=== PATIENT | female | born 1985 | race Caucasian/White ===

== ENCOUNTER 2017-12-08 11:58 | Emergency (ER) | payer BC ==
[2017-12-08 12:16] VITALS: BP 126/84
--- NOTE | 2017-12-08 12:44 | EDM.PDOC ---
ED HPI GENERAL MEDICAL PROBLEM - General Chief Complaint: Chest Pain Stated Complaint: CHEST PAIN Time Seen by Provider: 12/08/17 12:08 Source of Information: Reports: Patient, RN Notes Reviewed - History of Present Illness INITIAL COMMENTS - FREE TEXT/NARRATIVE: 32 year old female with onset of anterior chest discomfort about 4 hrs ago at work this past morning. Piru a heart burn type sensation upper mid chest radiating to base of neck. However since than has continued shooting pains across lower chest, has felt fatigued, mildly dizzy. She has not felt short of breath. Not coughing. No fever or chills. 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: - Past Surgical History Other HEENT Surgeries/Procedures: [place] teeth removed Musculoskeletal Surgical History: Reports: Ganglion Cyst Social & Family History - Family History Family Medical History: Noncontributory - Tobacco Use Smoking Status *Q: Never Smoker - Caffeine Use Caffeine Use: Reports: Soda - Recreational Drug Use Recreational Drug Use: No ED ROS GENERAL - Review of Systems Review Of Systems: See Below Constitutional: Denies: Fever, Chills, Diaphoresis HEENT: Denies: Sinus Problem, Throat Pain Respiratory: Denies: Shortness of Breath, Wheezing, Pleuritic Chest Pain, Cough , Hemoptysis Cardiovascular: Reports: Chest Pain, Lightheadedness (gone). Denies: Dyspnea on Exertion, Palpitations GI/Abdominal: Denies: Abdominal Pain, Nausea, Vomiting Musculoskeletal: Denies: Neck Pain, Shoulder Pain, Arm Pain Skin: Reports: No Symptoms Neurological: Reports: Dizziness (gone). Denies: Numbness, Tingling, Trouble Speaking ED EXAM, GENERAL - Physical Exam Exam: See Below General Appearance: Alert, No Apparent Distress Eye Exam: Bilateral Eye: PERRL Throat/Mouth: Normal Inspection Head: Atraumatic Neck: Supple, Full Range of Motion Respiratory/Chest: No Respiratory Distress, Lungs Clear, Normal Breath Sounds, Other (mild tenderness R sternal border). No: Rhonchi, Wheezing Cardiovascular: Regular Rate, Rhythm GI/Abdominal: Soft, Non-Tender Neurological: Alert, No Motor/Sensory Deficits Skin Exam: Warm, Dry, Normal Color, No Rash EKG INTERPRETATION EKG Date: 12/08/17 Rhythm: NSR Miracle: Normal P-Wave: Present QRS: Normal ST-T: Normal Course - Vital Signs Last Recorded V/S: Last Vital Signs Temp 97.5 F 12/08/17 12:11 Pulse 60 12/08/17 12:11 Resp 18 12/08/17 12:11 BP 126/84 12/08/17 12:11 Pulse Ox 97 12/08/17 12:11 - Orders/Labs/Meds Orders: Active Orders 24 hr Category Date Time Status EKG 12 Lead [EKG Documentation Completion] [RC] STAT Care 12/08/17 12:43 Active Labs: Laboratory Tests 12/08/17 12/08/17 12/08/17 Range/Units 12:57 12:57 12:57 WBC 6.47 (3.98-10.04) K/mm3 RBC 3.83 L (3.98-5.22) M/mm3 Hgb 11.9 (11.2-15.7) gm/L Hct 35.1 (34.1-44.9) % MCV 91.6 (79.4-94.8) fl MCH 31.1 (25.6-32.2) pg MCHC 33.9 (32.2-35.5) g/dl RDW Std Deviation 40.8 (36.4-46.3) fL Plt Count 193 (182-369) K/mm3 MPV 10.8 (9.4-12.3) fl Neut % (Auto) 64.1 (34.0-71.1) % Lymph % (Auto) 24.7 (19.3-51.7) % [place] % (Auto) 9.9 (4.7-12.5) % Eos % (Auto) 0.9 (0.7-5.8) Baso % (Auto) 0.2 (0.1-1.2) % Neut # (Auto) 4.15 (1.56-6.13) K/mm3 Lymph # (Auto) 1.60 (1.18-3.74) K/mm3 [place] # (Auto) 0.64 H (0.24-0.36) K/mm3 Eos # (Auto) 0.06 (0.04-0.36) K/mm3 Baso # (Auto) 0.01 (0.01-0.08) K/mm3 D-Dimer, Quantitative 0.55 H (0.19-0.50) mg/L Sodium 141 (136-145) mEq/L Potassium 4.0 (3.5-5.1) mEq/L Chloride 107 (98-107) mEq/L Carbon Dioxide 29 (21-32) mEq/L Anion Gap 9.0 (5-15) BUN 12 (7-18) mg/dL Creatinine 0.8 (0.55-1.02) mg/dL Est Cr Clr Drug Dosing 110.18 mL/min Estimated GFR (MDRD) > 60 (>60) mL/min BUN/Creatinine Ratio 15.0 (14-18) Glucose 90 (74-106) mg/dL Calcium 8.3 L (8.5-10.1) mg/dL Total Bilirubin 1.6 H (0.2-1.0) mg/dL AST 15 (15-37) U/L ALT 18 (14-59) U/L Alkaline Phosphatase 42 L (46-116) U/L Total Protein 6.2 L (6.4-8.2) g/dl Albumin 3.4 (3.4-5.0) g/dl Globulin 2.8 gm/dL Albumin/Globulin Ratio 1.2 (1-2) - Re-Assessments/Exams Free Text/Narrative Re-Assessment/Exam: 12/08/17 15:30 D Dimer came back at 0.55, slightly above the 0.50 recomended upper limit for nl. Symptomatically she feels better, discomfort and dizziness are both gone. Sats are 98 to 100%. She is not tachycardic or tachypnic. She is not short of breath and does not have pain with deep breathing. With none of those sx and no recent surgery, not on BCP I do not feel a CT pul angio is justified. Patient is in agreement with that. Will return to ED if symptoms worsening in any way. Departure - Departure Time of Disposition: 14:30 Disposition: Home, Self-Care 01 Condition: Fair Clinical Impression: Atypical chest pain GERD (gastroesophageal reflux disease) Qualifiers: Esophagitis presence: without esophagitis Qualified Code(s): K21.9 - Gastro- esophageal reflux disease without esophagitis Instructions: Nonspecific Chest Pain, [id number], Gastroesophageal Reflux Disease, Adult, [id number] Referrals: Miller Mitchell MD [Primary Care Provider] - Forms: ED Department Discharge Additional Instructions: consider pepcid or prilosec if having any further reflux type symptoms. Follow up clinic in 1 to 2 days, call [phone] for appt. Return to ED if symptoms worsening in any way as discussed. - My Orders Last 24 Hours: My Active Orders 12/08/17 12:43 EKG 12 Lead [EKG Documentation Completion] [RC] STAT - Assessment/Plan Last 24 Hours: My Active Orders 12/08/17 12:43 EKG 12 Lead [EKG Documentation Completion] [RC] STAT
== END 2017-12-08 14:47 | disposition home or self-care (01) ==
LOC: JD.ED 11:58
DX: R07.89 Other chest pain (principal); K21.9 Gastro-esophageal reflux disease without esophagitis
CPT/HCPCS: 36415; 80053; 85025; 85379; 93005; 93010; 99284-25; 99285-25

== ENCOUNTER 2019-02-03 22:50 | Inpatient (IN) | payer BC ==
[2019-02-03] MEDS ORDERED: Nalbuphine 10 MG/1 ML Vial IVPUSH PRN (23:19)
[2019-02-03] MEDS ORDERED: Sodium Chloride 0.9% 10 ML Syringe FLUSH PRN (23:19)
[2019-02-03] MEDS ORDERED: Ondansetron 4 MG/2 ML SDV IVPUSH PRN (23:19)
[2019-02-03] MEDS ORDERED: Lactated Ringers 1,000 ML IV SCH (23:30)
[2019-02-03] MEDS ORDERED: Oxytocin/Lactated Ringers 10 UNIT/1,000 ML BAG IV SCH (23:30)
[2019-02-04] MEDS ORDERED: diphenhydrAMINE 50 MG/ML SDV IVPUSH PRN (00:53)
[2019-02-04] MEDS ORDERED: fentaNYL/Bupivacaine/NS 2 MCG-0.125% 250 ML EPIDUR PRN (00:53)
[2019-02-04] MEDS ORDERED: fentaNYL 100 MCG/2 ML SDV EPIDUR PRN (00:53)
[2019-02-04] MEDS ORDERED: ePHEDrine 50 MG/ML SDV IVPUSH PRN (00:53)
--- NOTE | 2019-02-04 01:45 | PCM.LDHP ---
L&D History of Present Illness - General Date of Service: 02/04/19 Admit Problem/Dx: Patient Status Order with Admit Dx/Problem 02/03/19 23:19 Patient Status [ADT] Routine Admission Diagnosis/Problem Admission Diagnosis/Problem 02/04/19 01:32 Idalia is a 33 y/o G 3 P 2000 white female admitted at 38 2/7 weeks GA with an MAGUI of 02/16/19 in active labor with SROM and advanced cervical dilation of 4 cm. She has a h/o CS with first baby and with second and desires TOLAC with attempt at with this labor. Source of Information: Patient History Limitations: Reports: No Limitations - History of Present Illness Introduction:: Idalia is a 33 y/o G 3 P 2000 white female admitted at 38 2/7 weeks GA with an MAGUI of 02/16/19 in active labor with SROM and advanced cervical dilation of 4 cm. She has a h/o CS with first baby and with second and desires TOLAC with attempt at with this labor. She had a taste rupture membranes at approximately 20-30 hours on 02/03/2019. She was flower mildly before this but contractions intensified significantly after the SROM. 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 MAGUI 02/16/2019 is based upon a certain last menstrual starting 05/12/2018 is supported by 2 ultrasounds done on 07/20/2018 and 10/13/2018. Patient had menarche at age 12. Cycles every 28 days. Cycles are regular and last menstrual period was definite. Her past obstetric history includes the followin. Male born 06/30/2012 at 39 weeks gestational age7 lbs. 9 oz. section done to breech presentation. This child's name is Breana Bhatt 2. Female born 03/14/2015 at 38-3/7 weeks gestational age after 13 hours of laborVBACepidural use. Child's name is Kenzie Santana course: Patient was seen first for this on 07/20/2018 and 967 weeks gestational age. She had regular visits throughout the . Her weight gain was from 190-207 pounds. Fundal height growth was appropriate. Patient plans to attempt a . She had an abnormal three-hour glucose tolerance test. She control this well with diet alone. Plans to breast-feed. She declined genetic testing. [place] depression screening score on 10/08/2018 was 2/30. She had her flu shot on 01/14/2019. Her T dap was given on 12/17/2018 and patient is rubella immune. Laboratory testing and shows blood to be a positive with a negative and by screen. First hemoglobin is 13.3 g/dL and platelets are 229, 000. Her rubella titer shows immunity. RPR is nonreactive. Hepatitis B surface antigen was negative as was HIV assay. 10 Chlamydia tests were both negative. Second trimester labs showed a hemoglobin of 11.7 g/dL. Her platelets are 179,000. Her 1 hour screen was 137. History of glucose was as follows: Fasting blood sugar 87. One-hour blood sugar is 197. 2 hour blood sugar was 172. And 3 hour blood sugar was 124 giving her the diagnosis of gestational diabetes. Group B strep screen on 01/21/2019 was negative. RPR repeated on 11/10/2018 was nonreactive. Allergies: None Medications: 1. Ferrous sulfate 325 mg by mouth daily 2. tablets one by mouth daily 3. Claritin tablets when necessary for allergies. Past medical history: 1. Vaginal delivery 1VBAC Past surgical history: 1. 2013 secondary to breech presentation. 2. Ankle surgery 2. 3. Foot surgery 1. Family history: Noncontributory Social history: Patient is . is Peder. 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 She is a college graduate. She does not use any significant loss of alcohol, drugs or tobacco. Review of systems: Patient is in active labor having discomfort secondary to that. Skin: Negative Lungs: No infectious symptoms or shortness of breath Cardiovascular: No chest pain or exercise intolerance Breasts: Changes associated with . GI: Negative : Changes associated with . Musculoskeletal: Negative Neurological: Negative In general the patient is well-developed, well-nourished, pleasant female of stated age in no acute distress. Skin is warm dry without lesions. HEENT, neck and back within normal limits. Lungs are clear with good breath sounds in all lung parr. Rest of first visit were without abnormality. They're not reexamined this time. Patient plans to breast-feed. Cardiovascular exam shows regular and rhythm without murmurs. Abdomen is gravid. Last fundal height in clinic was 37 cm. It is in vertex presentation. Gentle exam per nursing evaluation at the time of admission shows cervix to be 4 cm , 90% effaced, gross spontaneous rupture membranes noted. Extremities and neurological exam are grossly within normal limits. 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: Other OB/BYN History: Endocrine/Metabolic History: Reports: Diabetes, Gestational - Past Surgical History HEENT Surgical History: Reports: Oral Surgery Other HEENT Surgeries/Procedures: [place] teeth removed Female Surgical History: Reports: Section Musculoskeletal Surgical History: Reports: Other (See Below) Other Musculoskeletal Surgeries/Procedures:: ankle surgery Social & Family History - Family History Family Medical History: Noncontributory - Tobacco Use Smoking Status *Q: Never Smoker - Caffeine Use Caffeine Use: Reports: Soda - Recreational Drug Use Recreational Drug Use: No H&P Review of Systems - Review of Systems: Review Of Systems: See Below L&D Exam - Exam Exam: See Below - Vital Signs Vital Signs: Last Vital Signs Temp 36.7 C 02/03/19 23:06 Pulse 62 02/03/19 23:06 Resp 16 02/03/19 23:06 BP 126/75 02/03/19 23:06 Pulse Ox 98 02/03/19 23:06 Weight: 94.347 kg - Patient Data Lab Results Last 24 hrs: Laboratory Results - last 24 hr 02/03/19 02/03/19 Range/Units 23:35 23:35 WBC 12.86 H (3.98-10.04) K/mm3 RBC 3.93 L (3.98-5.22) M/mm3 Hgb 12.9 (11.2-15.7) gm/dl Hct 36.8 (34.1-44.9) % MCV 93.6 (79.4-94.8) fl MCH 32.8 H (25.6-32.2) pg MCHC 35.1 (32.2-35.5) g/dl RDW Std Deviation 41.9 (36.4-46.3) fL Plt Count 181 L (182-369) K/mm3 MPV 11.4 (9.4-12.3) fl Neut % (Auto) 75.2 H (34.0-71.1) % Lymph % (Auto) 15.9 L (19.3-51.7) % [place] % (Auto) 7.8 (4.7-12.5) % Eos % (Auto) 0.5 L (0.7-5.8) Baso % (Auto) 0.2 (0.1-1.2) % Neut # (Auto) 9.69 H (1.56-6.13) K/mm3 Lymph # (Auto) 2.04 (1.18-3.74) K/mm3 [place] # (Auto) 1.00 H (0.24-0.36) K/mm3 Eos # (Auto) 0.06 (0.04-0.36) K/mm3 Baso # (Auto) 0.02 (0.01-0.08) K/mm3 Blood Type A POSITIVE Gel Antibody Screen Negative Result Diagrams: 02/03/19 23:35 Problem List Initiated/Reviewed/Updated: Yes Orders Last 24hrs: Active Orders 24 hr Category Date Time Status Patient Status [ADT] Routine ADT 02/03/19 23:19 Active Activity as Tolerated [RC] PFP Care 02/03/19 23:19 Active Communication Order [RC] ASDIRECTED Care 02/03/19 23:19 Active Heart Tones [RC] ASDIRECTED Care 02/03/19 23:19 Active Heart Tones [RC] ASDIRECTED Care 02/03/19 23:19 Active Non Stress Test [RC] PER UNIT ROUTINE Care 02/03/19 23:19 Active Notify Provider [RC] ASDIRECTED Care 02/04/19 00:53 Active Notify Provider [RC] PFP Care 02/03/19 23:19 Active Notify Provider [RC] PRN Care 02/03/19 23:19 Active Peripheral IV Care [RC] . DIRECTED Care 02/03/19 23:19 Active Urinary Catheter Assessment [RC] ASDIRECTED Care 02/03/19 23:19 Active Verify Patient Consent Obtain [RC] ASDIRECTED Care 02/03/19 23:23 Active Vital Signs [RC] PER UNIT ROUTINE Care 02/03/19 23:19 Active RAPID PLASMA REAGIN,RPR [CHEM] Routine Lab 02/03/19 23:35 Received Bupivicaine/fentaNYL/NS [fentaNYL/Bupivacaine/NS 2 MCG- Med 02/04/19 00:53 Active 0.125% 250 ML] 2 mcg EPIDUR CONTINUOUS PRN Lactated Ringers [Ringers, Lactated] 1,000 ml Med 02/03/19 23:30 Active IV ASDIRECTED Nalbuphine [Nubain] Med 02/03/19 23:19 Active 10 mg IVPUSH Q2H PRN Ondansetron [Zofran] Med 02/03/19 23:19 Active 4 mg IVPUSH Q4H PRN Oxytocin/Lactated Ringers [Pitocin in LR 10 Units/1,000 Med 02/03/19 23:30 Active ML] 10 unit in 1,000 ml IV .CONTINUOUS Sodium Chloride 0.9% [Saline Flush] Med 02/03/19 23:19 Active 10 ml FLUSH ASDIRECTED PRN diphenhydrAMINE [Benadryl] Med 02/04/19 00:53 Active 25 mg IVPUSH Q6H PRN ePHEDrine [ePHEDrine sulfate] Med 02/04/19 00:53 Active 5 mg IVPUSH ASDIRECTED PRN fentaNYL [Sublimaze] Med 02/04/19 00:53 Active 100 mcg EPIDUR Q3H PRN Electronic Heart Tones Ext w TOCO [WOMSER] Oth 02/03/19 23:19 Ordered Routine Electronic Heart Tones Internal [WOMSER] Per Unit Oth 02/03/19 23:19 Ordered Routine Peripheral IV Insertion Adult [OM.PC] Routine Oth 02/03/19 23:19 Ordered Saline Lock Insert [OM.PC] Routine Oth 02/03/19 23:20 Ordered Resuscitation Status Routine Resus Stat 02/03/19 23:19 Ordered Medication Orders Diphenhydramine HCl (Benadryl) 25 mg IVPUSH Q6H PRN PRN Reason: pruritis Ephedrine Sulfate (Ephedrine Sulfate) 5 mg IVPUSH ASDIRECTED PRN PRN Reason: Hypotension Fentanyl (Sublimaze) 100 mcg EPIDUR Q3H PRN PRN Reason: Pain Fentanyl/Bupivacaine HCl (Fentanyl/Bupivacaine/Ns 2 Mcg-0.125% 250 Ml) 2 mcg EPIDUR CONTINUOUS PRN PRN Reason: Pain Lactated Ringer's (Ringers, Lactated) 1,000 mls @ 100 mls/hr IV ASDIRECTED [facility] Last Admin: 02/04/19 00:21 Dose: 100 mls/hr Oxytocin/Lactated Ringer's (Pitocin In Lr 10 Units/1,000 Ml) 10 unit in 1,000 mls @ 500 mls/hr IV .CONTINUOUS KOLBY Last Admin: 02/04/19 01:18 Dose: 500 mls/hr Nalbuphine HCl (Nubain) 10 mg IVPUSH Q2H PRN PRN Reason: Pain Ondansetron HCl (Zofran) 4 mg IVPUSH Q4H PRN PRN Reason: Nausea/Vomiting Sodium Chloride (Saline Flush) 10 ml FLUSH ASDIRECTED PRN PRN Reason: Keep Vein Open Assessment/Plan Comment:: 1. 38-2/7 week intrauterine , spontaneous rupture membranes with active labor and advanced cervical dilation upon admission. 2. Group B strep screen negative 3. History of previous section with first pregnancydone for breech presentationhas successfully and wishes to be back this time. 4. T dap, flu vaccination given in . 5. Patient plans to breast-feed. 6. Patient plan for epidural. Plan: 1. Precautions taken regarding trial of labor after section for attempt at vaginal after section including section labs secured. Continuous heart rate monitoring recommended. IV access obtained. Consents obtained for trial labor after section for attempt at vaginal after section, possible repeat section. Anesthesia and surgery departments are made aware of patient's presence in L&D. 2. Anticipate . 3. Support breast-feeding decision
--- NOTE | 2019-02-04 01:55 | PCM.SN ---
- Free Text/Narrative Note: Idalia is a 33-year-old 3 now para 3003 white female admitted on and 38-2/7 weeks gestational age with spontaneous rupture membranes, in active labor with history of section with her first delivery, a baby with her second delivery desiring with this . MAGUI was 2018. She progressed rapidly to complete cervical dilation. She desired but did not receive epidural analgesia because of the sphenoid with which she dilated. She delivered a viable, farah, male infant with Apgars of 7 and 9, weight of 3640 g (8 pounds 0.4 ounces), in a direct occiput anterior position at 0115 hrs. on 02/04/2019. It was nuchal cord 2 which was loose and reduced over the baby's head. She had a true knot in the cord. The umbilical cord had 3 vessels. Upon delivery the Pitocin was started and run at 500 mL an hour facilitate increase uterine tone and decreased likelihood of bleeding. Patient had a first-degree laceration which was repaired with a single figure-of -eight suture of 3-0 Monocryl. The placenta delivered in a Casarez presentation , appeared intact and complete and was discarded per patient desire. Estimated blood loss 100 mL. She plans to breast-feed. Condition: Good
[2019-02-04] MEDS ORDERED: Docusate Sodium 100 MG Cap PO PRN (01:56)
[2019-02-04] MEDS ORDERED: Acetaminophen 325 MG Tab PO PRN (01:56)
[2019-02-04] MEDS ORDERED: Benzocaine/Menthol 20%-0.5% Spray 56 GM Canister TOP PRN (01:56)
[2019-02-04] MEDS: Witch Hazel Medicated Pads 40/Jar TOP PRN ×2 (02:11→15:30)
[2019-02-04] MEDS: Ibuprofen 600 MG Tab PO PRN ×4 (02:12→20:38)
[2019-02-04] MEDS: Prenatal Multivitamin with Calcium/Folic Acid/Iron Tab PO SCH (08:00)
[2019-02-05] MEDS: Ibuprofen 600 MG Tab PO PRN ×2 (01:21→06:10)
--- NOTE | 2019-02-05 06:00 | PCM.DCSUM1 ---
Discharge Summary - Hospital Course Free Text/Narrative:: Idalia is a 33-year-old 3 now para 3003 white female admitted on 2018 and 38-2/7 weeks gestational age with spontaneous rupture membranes, in active labor with history of section with her first delivery, a baby with her second delivery desiring with this . MAGUI was 2018. She progressed rapidly to complete cervical dilation. She desired but did not receive epidural analgesia because of the sphenoid with which she dilated. She delivered a viable, farah, male with Apgars of 7 and 9, weight of 3640 g (8 pounds 0.4 ounces), in a direct occiput anterior position at 0115 hrs. on 02/04/2019. It was nuchal cord 2 which was loose and reduced over the baby's head. She had a true knot in the cord. The umbilical cord had 3 vessels. Upon delivery the Pitocin was started and run at 500 mL an hour facilitate increase uterine tone and decreased likelihood of bleeding. Patient had a first-degree laceration which was repaired with a single figure-of -eight suture of 3-0 Monocryl. The placenta delivered in a Casarez presentation , appeared intact and complete and was discarded per patient desire. Estimated blood loss 100 mL. patient is done very well. She is ambulating well, has minimal lochia , was voiding without concerns. Breast-feeding is going well. She desires to be discharged home today. Condition: Good Diagnosis: Stroke: No - Discharge Data Discharge Date: 02/05/19 Discharge Disposition: Home, Self-Care 01 Condition: Good - Referral to Home Health Primary Care Physician: Miller Mitchell MD - Patient Instructions Diet: Regular Diet as Tolerated (Nursing diet with increase calories and calcium as recommended) Activity: As Tolerated (No intercourse or tampons until bleeding resolves) Driving: May Drive Today Showering/Bathing: May Shower (May take a bath) Notify Provider of: Fever, Increased Pain, Swelling and Redness, Nausea and/or Vomiting - Discharge Plan Home Medications: Home Meds PNV95/Ferrous Fumarate/FA [ Tablet] 1 each PO DAILY 03/13/16 [History] Ferrous Gluconate [Iron] 75 mg PO 02/03/19 [History] Acetaminophen [Tylenol] 650 mg PO Q4H PRN tablet 02/05/19 [Rx] Ibuprofen [Motrin] 600 mg PO Q4H PRN tablet 02/05/19 [Rx] Referrals: Miller Mitchell MD [Primary Care Provider] - (Return to clinicDr. Mitchell2 weeks.) - Discharge Summary/Plan Comment DC Time >30 min.: No Discharge Summary/Plan Comment: Discharge instructions: 1. Discharge home 2. Diet, activity and follow-up discussed with patient. Recommend nursing diet with increased calories and calcium. 3. Precautions given concern increased pain, bleeding, temperature, signs/ symptoms of DVT/PE. 4. Medications per home medication was printed, discussed with and given to the patient. 5. Return to clinic-Dr. Mitchell-[facility] in 2 weeks. Diagnosis: Term -delivered Condition: Good - Patient Data Vitals - Most Recent: Last Vital Signs Temp 37.2 C 02/05/19 04:30 Pulse 62 02/05/19 04:30 Resp 16 02/05/19 04:30 BP 124/61 02/05/19 04:30 Pulse Ox 99 02/05/19 04:30 Weight - Most Recent: 94.347 kg I&O - Last 24 hours: Intake & Output 02/04/19 02/04/19 02/05/19 14:59 22:59 06:59 Intake Total 180 360 Balance 180 360 Lab Results - Last 24 hrs: Laboratory Results - last 24 hr 02/03/19 Range/Units 23:35 RPR Non-reactive (NONREACTIVE) Med Orders - Current: Current Medications Acetaminophen (Tylenol) 650 mg PO Q4H PRN PRN Reason: mild pain or fever Benzocaine/Menthol (Dermoplast Pain Relief [place]) 0 gm TOP ASDIRECTED PRN PRN Reason: Perineal Comfort Measure Last Admin: 02/04/19 02:12 Dose: 1 applic Docusate Sodium (Colace) 100 mg PO BID PRN PRN Reason: Constipation Last Admin: 02/04/19 14:52 Dose: 100 mg Ibuprofen (Motrin) 600 mg PO Q4H PRN PRN Reason: Mild pain or fever Last Admin: 02/05/19 01:21 Dose: 600 mg Prenat Multivit/Labette/Iron/Folic Ac ( Plus Iron) 1 each PO DAILY [facility] Last Admin: 02/04/19 08:00 Dose: 1 each Twila Hong (Tucks) 1 pad TOP ASDIRECTED PRN PRN Reason: Pain Last Admin: 02/04/19 15:30 Dose: 1 applic Discontinued Medications Diphenhydramine HCl (Benadryl) 25 mg IVPUSH Q6H PRN PRN Reason: pruritis Ephedrine Sulfate (Ephedrine Sulfate) 5 mg IVPUSH ASDIRECTED PRN PRN Reason: Hypotension Fentanyl (Sublimaze) 100 mcg EPIDUR Q3H PRN PRN Reason: Pain Fentanyl/Bupivacaine HCl (Fentanyl/Bupivacaine/Ns 2 Mcg-0.125% 250 Ml) 2 mcg EPIDUR CONTINUOUS PRN PRN Reason: Pain Lactated Ringer's (Ringers, Lactated) 1,000 mls @ 100 mls/hr IV ASDIRECTED KOLBY Last Admin: 02/04/19 00:21 Dose: 100 mls/hr Oxytocin/Lactated Ringer's (Pitocin In Lr 10 Units/1,000 Ml) 10 unit in 1,000 mls @ 500 mls/hr IV .CONTINUOUS KOLBY Last Admin: 02/04/19 01:18 Dose: 500 mls/hr Nalbuphine HCl (Nubain) 10 mg IVPUSH Q2H PRN PRN Reason: Pain Ondansetron HCl (Zofran) 4 mg IVPUSH Q4H PRN PRN Reason: Nausea/Vomiting Sodium Chloride (Saline Flush) 10 ml FLUSH ASDIRECTED PRN PRN Reason: Keep Vein Open
[2019-02-05 11:42] VITALS: BP 99/65; PULSE 66
[2019-02-05] MEDS: Prenatal Multivitamin with Calcium/Folic Acid/Iron Tab PO SCH (11:51)
== END 2019-02-05 11:16 | disposition home or self-care (01) | DRG 560 ==
LOC: JD.OBCHECK 22:50 → JD.OB 22:54 → JD.OBCHECK 23:29 → JD.OB 23:30 → OBSVTOIN 02-04 01:15 → JD.OB 02-04 01:16
PROVIDERS: ADMIT Obstetrics & Gynecology; ATTEND Obstetrics & Gynecology
PROC: 10E0XZZ Delivery of Products of Conception, External Approach (ICD-10-PCS; principal; 2019-02-04)
PROC: 0HQ9XZZ Repair Perineum Skin, External Approach (ICD-10-PCS; 2019-02-04)
DX: O70.0 First degree perineal laceration during delivery (principal); Z37.0 Single live birth; Z3A.38 38 weeks gestation of pregnancy
CPT/HCPCS: 36415; 59025; 59409; 85025; 86592; 86850; 86900; 86901; A9270-GY; J2590; J7120

== ENCOUNTER 2022-03-31 02:56 | Inpatient (IN) | payer BC ==
[2022-03-31] MEDS ORDERED: Sodium Chloride 0.9% 10 ML Syringe FLUSH PRN (04:06)
[2022-03-31] MEDS ORDERED: Ampicillin 2 GM in Sodium Chloride 0.9% 100 ML IV ONE (04:06)
[2022-03-31] MEDS ORDERED: Acetaminophen 325 MG Tab PO PRN ×2 (04:06→16:02)
[2022-03-31] MEDS ORDERED: Calcium Carbonate 500 MG Tab.Chew PO PRN (04:06)
[2022-03-31] MEDS ORDERED: Ondansetron 4 MG/2 ML SDV IVPUSH PRN (04:06)
[2022-03-31] MEDS ORDERED: Nalbuphine 10 MG/0.5 ML Syringe IVPUSH PRN (04:06)
[2022-03-31] MEDS ORDERED: Lidocaine 1% 50 ML MDV INJECT ONE (04:06)
[2022-03-31] MEDS ORDERED: Oxytocin/Lactated Ringers 10 UNIT/1,000 ML BAG IV SCH ×2 (04:15→09:00)
[2022-03-31] MEDS: Lactated Ringers 1,000 ML IV SCH ×2 (04:30→08:36)
[2022-03-31] MEDS ORDERED: Betamethasone Acetate/Betamethasone Sod Phosphate 30 MG/5 ML MDV IM ONE (07:40)
[2022-03-31] MEDS: Ampicillin 1 GM in Sodium Chloride 0.9% 100 ML IV SCH ×2 (08:29→12:40)
[2022-03-31] MEDS ORDERED: Sodium Chloride 0.9% 10 ML Syringe FLUSH SCH (09:00)
[2022-03-31] MEDS ORDERED: Benzocaine/Menthol 20%-0.5% Spray 78 GM Cannister TOP PRN (16:02)
[2022-03-31] MEDS ORDERED: Witch Hazel Medicated Pads 40/Jar TOP PRN (16:02)
[2022-03-31] MEDS: Ibuprofen 600 MG Tab PO PRN (20:53)
[2022-03-31] MEDS: Docusate Sodium 100 MG Cap PO PRN (20:53)
[2022-04-01] MEDS: Ibuprofen 600 MG Tab PO PRN ×2 (03:25→13:45)
[2022-04-01] MEDS: Docusate Sodium 100 MG Cap PO PRN (13:45)
[2022-04-02 08:02] VITALS: BP 108/77; PULSE 64
== END 2022-04-02 11:34 | disposition home or self-care (01) | DRG 560 ==
LOC: JD.OBCHECK 02:56 → JD.OB 02:59 → JD.OBCHECK 04:05 → JD.OB 04:06 → OBSVTOIN 15:45 → JD.OB 16:56
PROVIDERS: ADMIT Obstetrics & Gynecology; ATTEND Obstetrics & Gynecology
PROC: 10E0XZZ Delivery of Products of Conception, External Approach (ICD-10-PCS; principal; 2022-03-31)
DX: O34.219 Maternal care for unspecified type scar from previous cesarean delivery (principal); O69.81X0 Labor and delivery complicated by cord around neck, without compression, not applicable or unspecified; O60.14X0 Preterm labor third trimester with preterm delivery third trimester, not applicable or unspecified; Z3A.36 36 weeks gestation of pregnancy; Z37.0 Single live birth; O24.429 Gestational diabetes mellitus in childbirth, unspecified control
CPT/HCPCS: 36415; 59025; 59409; 84112; 85027; 86592; 87653; A9270-GY; J0290; J0702; J2590; J7120